=== PATIENT | male | born 1980 ===

== ENCOUNTER 2019-02-03 08:48 | Day surgery (SDC) | payer OTHER ==
[2019-02-03] VITALS (7 sets, daily range): BP systolic 125–144; BP diastolic 70–78
[~2019-02-03] VITALS: Ht 172.7 cm; Wt 96.3 kg
[~2019-02-03 08:48] MED LIST: NO HOME MEDS; ceFAZolin 2gm in dextrose, iso 100 ML IV ONE; famotidine 20mg tablet PO ONE; ringers solution, lacted 1,000 ML IV SCH
[2019-02-03] MEDS ORDERED: famotidine 20mg tablet PO ONE (09:27)
[2019-02-03] MEDS ORDERED: cefazolin/dext.iso 2gm/100 ML IV ONE (09:27)
[2019-02-03] MEDS ORDERED: ringers solution, lacted 1,000 ML IV SCH ×2 (09:28→11:49)
[2019-02-03] MEDS ORDERED: meperidine/PF 25mg/ml syringe IV PRN ×2 (11:50)
[2019-02-03] MEDS ORDERED: ondansetron/PF 4mg/2ml inj IV PRN (11:50)
[2019-02-03] MEDS ORDERED: morphine 4 MG/ML inj SYRINge IV PRN ×2 (11:50)
[2019-02-03] MEDS ORDERED: proCHLORperazine 10 MG/2 ml inj IV PRN (11:50)
[2019-02-03] MEDS ORDERED: ceFAZolin 1000mg inj ONE (12:41)
[2019-02-03] MEDS ORDERED: epiNEPHrine 1 mg/ml inj ONE (12:41)
[2019-02-03] MEDS: ROPIVAcaine 0.5% (5mg/ml) 30ml vial ONE ×2 (12:44→15:33)
[2019-02-03] MEDS ORDERED: neostigmine methylsulfate 1 MG/ML 10ml vial ONE (13:08)
[2019-02-03] MEDS ORDERED: ondansetron/PF 4mg/2ml inj ONE (13:08)
[2019-02-03] MEDS ORDERED: sevoflurane 250ml liquid IH ONE (13:08)
[2019-02-03] MEDS ORDERED: glycopyrrolate 0.2mg/ml inj ONE (13:08)
[2019-02-03] MEDS ORDERED: dexamethasone sod phosphate 10mg/ml inj ONE (13:08)
[2019-02-03] MEDS ORDERED: midazolam 2 mg/2 ml injection ONE (13:16)
[2019-02-03] MEDS ORDERED: fentaNYL /PF 50mcg/ml 5ml ampule ONE (13:17)
[2019-02-03] MEDS ORDERED: LIDOcaine 1%/PF 5ML 10 MG/ML VIAL ONE (13:18)
[2019-02-03] MEDS ORDERED: ROPIVAcaine 0.5% (5mg/ml) 30ml vial ONE (13:18)
[2019-02-03] MEDS ORDERED: propofol inj 20 ML IV ONE (13:18)
--- NOTE | 2019-02-03 14:40 | NUR ---
Received from OR via BED , accompanied by Anesthesiologist DR SARABIA and report given by Anesthesiolgist. PATIENT WAKING UP, DENIES PAIN, V/S WNL, NEUROVASCULAR CHECKS INTACT, 20G PIV LUE , DRESSING TO RIGHT KNEE CDI W/ COLD POWDER PACK AND IMMOBILIZER BRACE W/ SCD ON.
[2019-02-03] MEDS ORDERED: ketorolac trometh. 30mg/ml inj. ONE (15:26)
[2019-02-03] MEDS: meperidine/PF 25mg/ml syringe IV PRN ×2 (15:52→16:01)
--- NOTE | 2019-02-03 16:30 | NUR ---
PATIENT A&OX4, DENIES PAIN, V/S WNL, NEUROVASCULAR CHECKS INTACT, 20G PIV D/C WITH NO COMPLICATIONS OBSERVED , DRESSING TO RIGHT KNEE CDI W/ COLD POWDER PACK AND HINGED KNEE BRACE LOCKED IN EXTENTION , SCD OFF. I HAVE REVIEWED D/C INSTRUCTIONS WITH PATIENT AND GUARDS AND THEY HAVE VERBALIZED UNDERSTANDING. PATIENT D/C HOME WITH ALL BELONGINGS AND GUARDS GAVE TRANSPORT.
== END 2019-02-03 16:30 ==
LOC: PAS 08:48 → EEVIPCON 12:15 → PAS 16:30
PROVIDERS: ATTEND Orthopaedic Surgery
DX: S83.211A Bucket-handle tear of medial meniscus, current injury, right knee, initial encounter (principal); S83.511A Sprain of anterior cruciate ligament of right knee, initial encounter; X58.XXXA Exposure to other specified factors, initial encounter; Y93.89 Activity, other specified; Y92.89 Other specified places as the place of occurrence of the external cause; Y99.8 Other external cause status
CPT/HCPCS: 29881; 29888; A6449; C1713; C1776; J0171; J0690; J1100; J1885; J2001; J2175; J2250; J2405; J2704; J2710; J3010; L1832; A7000; J2795; J3490; J7030; J7120